=== PATIENT | female | born 1975 | race African-American/Black ===

== ENCOUNTER 2018-10-26 04:55 | Day surgery (SDC) | payer OTHER ==
[2018-10-22 10:40] VITALS: BMI 29.7
--- NOTE | 2018-10-26 07:18 | HP ---
History & Physical Update - History History: No Change - Physical Physical: No Change - Assessment Assessment: No Change - Plan Plan: No Change (Consent signed and witnessed, all questions answered)
[2018-10-26] MEDS ORDERED: MIDAZOLAM HCL 2 MG/2 ML SINGLE DOSE VIAL ONE (07:28)
[2018-10-26] MEDS ORDERED: PROPOFOL 20 ML ONE (07:28)
[2018-10-26] MEDS ORDERED: DEXAMETHASONE SOD PHOSPHATE 4 MG/1 ML VIAL ONE (07:58)
[2018-10-26] MEDS ORDERED: ePHEDrine SULFATE 50 MG/1 ML AMPULE ONE (08:26)
[2018-10-26] MEDS ORDERED: oxyCODONE HCL 5 MG TABLET PO PRN ×2 (08:51→09:16)
[2018-10-26] MEDS ORDERED: ONDANSETRON 4 MG/2 ML VIAL IVPUSH PRN ×2 (08:51→09:16)
[2018-10-26] MEDS ORDERED: LACTATED RINGERS SOLUTION 1,000 ML IV SCH (09:00)
[2018-10-26] MEDS ORDERED: IBUPROFEN 800 MG/8 ML IJ IVPB PRN (09:16)
[2018-10-26] MEDS ORDERED: IBUPROFEN 600 MG TABLET (FP) PO PRN (09:16)
--- NOTE | 2018-10-26 09:27 | OP ---
Operative Note - Note: Operative Date: 10/26/18 Pre-Operative Diagnosis: 43yo P2 with thick - 17mm Endometrium, anemia Operation: Hysteroscopy, Myomectomy, Polypectomy, D&C Findings: 1. Fibroid with submucasal component 2. Endometrial polyps 3. Overgrown Endometrium Post-Operative Diagnosis: Same as Pre-op Surgeon: Corinna Friend Anesthesiologist/DIRECTOR OF DIVERSITY AND INCLUSION: Raimundo Nieves Anesthesia: MAC Estimated Blood Loss (mls): 10 Drains & Tubes with Location: Fluid defficit - 2150cc Drains, Volume Out (mls): 150 Fluid Volume Replaced (mls): 500 Operative Report Dictated: Yes
[2018-10-26] MEDS ORDERED: ELECTROLYTE-148 SOLN 1,000 ML IV SCH (09:30)
[2018-10-26 09:32] LABS: BASO % 0.9 % (0-2.0); EOS % 1.4 % (0-4.5); HEMOGLOBIN 9.3 GM/dL (10.7-15.3); LYMPH % 50.6 % (8-40); MCH 24.9 pg (25.7-33.7); MCHC 33.3 g/dl (32.0-36.0); MEAN CELL VOLUME 74.6 fl (80-96); MONO % 8.8 % (3.8-10.2); NEUT % 38.3 % (42.8-82.8); PLATELET COUNT 300 K/MM3 (134-434); RBC 3.75 M/mm3 (3.60-5.2); RDW 19.5 % (11.6-15.6); WHITE BLOOD COUNT 2.8 K/mm3 (4.0-10.0)
[2018-10-26 09:59] LABS: ANION GAP 7 MMOL/L (8-16); BLOOD UREA NITROGEN 15 mg/dL (7-18); CALCIUM 7.6 mg/dL (8.5-10.1); CHLORIDE 111 mmol/L (98-107); CO2 21 mmol/L (21-32); CREATININE 0.9 mg/dL (0.55-1.3); GLUCOSE,RANDOM 99 mg/dL (74-106); POTASSIUM 4.4 mmol/L (3.5-5.1); SODIUM 139 mmol/L (136-145)
[2018-10-26 11:16] VITALS: TEMP 97.3
[2018-10-26] MEDS ORDERED: ONDANSETRON 4 MG/2 ML VIAL IVPUSH ONE (11:21)
[2018-10-26] MEDS ORDERED: ONDANSETRON 4 MG/2 ML VIAL ONE (11:25)
[2018-10-26 12:31] VITALS: BP 112/52; PULSE 65
--- NOTE | 2018-10-27 18:09 | PATH ---
Surgical Pathology Report Patient Name: MARI LEARY [facility]. Rec. #: [id number] /Age/Gender: 1975 (Age: 43) / F Account: [id number] [facility] [facility] [place] [facility] Taken: 10/26/2018 Received: 10/26/2018 Reported: 10/27/2018 Physicians: Corinna Friend M.D. Specimen(s) Received MYOMA, ENDOMETRIAL POLYP, ENDOMETRIAL CURETTINGS Clinical History Excessive and frequent irregular menstruation Final Diagnosis MYOMA, ENDOMETRIAL POLYP, ENDOMETRIAL CURETTINGS: SMOOTH MUSCLE BUNDLES, CONSISTENT WITH LEIOMYOMA. ENDOMETRIAL POLYPS. SEPARATE SECRETORY TYPE ENDOMETRIUM. Electronically Signed Tamia Suazo M.D. Gross Description Received in formalin labeled "myoma, endometrial polyp, [facility] is a 5.0 x 3.0 x 0.5 cm aggregate of coulter red soft tissue fragments admixed with blood clot, consistent with endometrial curettings. Separately received within the same container, within a suction bag, is a 5.0 x 3.8 x 0.6 cm aggregate of coulter, firm to rubbery tissue fragments. A retention representative portion is submitted in 6 cassettes as follows: 2-1-[id number] submitted curettings; 7-9-[id number] tissue from suction bag. 10/26/2018 [facility]
--- NOTE | 2018-12-21 08:42 | OP ---
DATE OF OPERATION: 10/26/2018 PREOPERATIVE DIAGNOSIS: A 43-year-old para 2 with thick endometrium, 17-mm endometrial stripe on ultrasound, and anemia. PROCEDURE PERFORMED: Hysteroscopy, myomectomy, polypectomy, dilatation and curettage. FINDINGS: Fibroid with submucosal component, endometrial polyps and overgrowing endometrium. POSTOPERATIVE DIAGNOSIS: A 43-year-old para 2 with thick endometrium, 17-mm endometrial stripe on ultrasound, and anemia. SURGEON: Corinna Friend MD ANESTHESIOLOGIST: Raimundo Nieves CRNA ANESTHESIA: MAC. DESCRIPTION OF PROCEDURE: After ensuring informed consent, the patient was brought to the operating room, where she was placed in the dorsal lithotomy position. The vagina and perineum were prepped and draped in sterile fashion. A Guardado retractor was placed into the vagina. The cervix was articulated with a single-tooth tenaculum and gradually dilated to accommodate a Symphion hysteroscope. The Symphion hysteroscope was primed and white balanced. It was placed through the cervix into the uterus without any difficulty, with the above-described findings. The resectoscope instrument was placed through the operative port and myomectomy, polypectomy and dilatation and curettage were accomplished via the resectoscope. Excellent hemostasis was assured. All instruments were removed from the uterus, cervix and vagina. The patient received 500 mL of IV fluids, and drained 150 mL of urine. Estimated blood loss was 10 mL. Fluid deficit was 2150 mL. The patient tolerated the procedure well. Instrument and sponge count was correct x2. Marcelino [id number]
== END 2018-10-26 12:45 | disposition home or self-care (01) ==
LOC: JASU-SURG 04:55
PROVIDERS: ATTEND Obstetrics & Gynecology
PROC: 0UB97ZX Excision of Uterus, Via Natural or Artificial Opening, Diagnostic (ICD-10-PCS; 2018-10-26)
PROC: 0UDB7ZX Extraction of Endometrium, Via Natural or Artificial Opening, Diagnostic (ICD-10-PCS; 2018-10-26)
PROC: 0UJD8ZZ Inspection of Uterus and Cervix, Via Natural or Artificial Opening Endoscopic (ICD-10-PCS; 2018-10-26)
PROC: 0UB98ZZ Excision of Uterus, Via Natural or Artificial Opening Endoscopic (ICD-10-PCS; principal; 2018-10-26 07:30)
DX: D25.9 Leiomyoma of uterus, unspecified (principal); N84.0 Polyp of corpus uteri
CPT/HCPCS: 36415; 80048; 84703; 85025; 88305-TC; 94760

== ENCOUNTER 2020-02-01 12:31 | Inpatient (IN) | payer OTHER ==
--- NOTE | 2020-02-01 14:15 | EKG ---
Test Reason : Blood Pressure : / mmHG Vent. Rate : 067 BPM Atrial Rate : 067 BPM P-R Int : 140 ms QRS Dur : 074 ms QT Int : 402 ms P-R-T Axes : 054 019 016 degrees QTc Int : 424 ms NORMAL SINUS RHYTHM NORMAL ECG WHEN COMPARED WITH ECG OF 18-OCT-2018 14:10, NO SIGNIFICANT CHANGE WAS FOUND Confirmed by MD MAGDY, SAVANNA ([id number]) on 02/01/2020 2:15:16 PM Referred By: Quinn MIR Confirmed By:SAVANNA CURRAN MD
[2020-02-01] MEDS ORDERED: SODIUM CHLORIDE 0.9% P/F 10 ML VIAL IJ ONE (14:45)
[2020-02-01] MEDS ORDERED: MIDAZOLAM HCL 2 MG/2 ML SINGLE DOSE VIAL ONE ×2 (14:45)
[2020-02-01] MEDS ORDERED: ceFAZolin SODIUM 1 GM VIAL ONE (14:45)
[2020-02-01] MEDS ORDERED: PROPOFOL 20 ML ONE ×2 (14:45)
[2020-02-01] MEDS ORDERED: DEXAMETHASONE SOD PHOSPHATE 4 MG/1 ML VIAL ONE (14:45)
[2020-02-01] MEDS ORDERED: KETOROLAC TROMETHAMINE 30 MG/1 ML VIAL ONE (16:18)
[2020-02-01] MEDS ORDERED: IBUPROFEN 600 MG TABLET (FP) PO PRN (16:36)
[2020-02-01] MEDS ORDERED: IBUPROFEN 800 MG/8 ML IJ IVPB PRN (16:36)
[2020-02-01] MEDS ORDERED: oxyCODONE HCL 5 MG TABLET PO PRN ×2 (16:36)
[2020-02-01] MEDS ORDERED: ONDANSETRON 4 MG/2 ML VIAL IVPUSH PRN ×2 (16:36)
[2020-02-01] MEDS ORDERED: ACETAMINOPHEN 1000 MG/100 ML VIAL (NON FORMULARY) IVPB ONE ×2 (16:37)
--- NOTE | 2020-02-01 16:40 | HP ---
History & Physical Update - History History: No Change - Physical Physical: No Change - Assessment Assessment: No Change - Plan Plan: No Change (Clearly explained that effectivness of this procedure is low due to large fibroid uterus. Reason for the procedure is temporise while she is on blood anticoagulats and does not have any other options currently. Consent signed and witnessed)
--- NOTE | 2020-02-01 16:44 | OP ---
Operative Note - Note: Operative Date: 02/01/20 Pre-Operative Diagnosis: 44yo with large fibroid uterus and abnormal uterine bleeding on anticoagulation for Pulmonary embolism Operation: D&C, Hysteroscopic endometrial ablation Findings: 1.Several submucosal fibroids 2.14wk Uterus 3. 10min cycle completed Post-Operative Diagnosis: Same as Pre-op Surgeon: Corinna Friend Anesthesiologist/CIRCULAR RIPSAW OPERATOR: Abdullahi Overton Anesthesia: MAC Specimens Removed: Endometrial curettings Estimated Blood Loss (mls): 0 Drains, Volume Out (mls): 0 Fluid Volume Replaced (mls): 550 Operative Report Dictated: Yes
[2020-02-01] MEDS ORDERED: ELECTROLYTE-148 SOLN 1,000 ML IV SCH (16:45)
[2020-02-01] MEDS ORDERED: ACETAMINOPHEN INJECTION 100 ML IVPB ONE (17:14)
[2020-02-01] MEDS ORDERED: ONDANSETRON 4 MG/2 ML VIAL ONE (19:49)
--- NOTE | 2020-02-01 21:19 | HP ---
CHIEF COMPLAINT: nausea, vomiting PCP: Dr. Ivory Braden HISTORY OF PRESENT ILLNESS: Patient is a 44 year old female with history of fibroid uterus, pulmonary embolism (provoked by oral contraceptive use, diagnosed this past November), iron deficiency anemia, presents POD #0 s/p D&C with hysterosopic endometrial ablation. Patient has been experiencing progressive bleeding prompting this procedure. Noted that she was also recently started on Apixiban for pulmonary embolism which patient admits has contributed to worsening bleeding. EBL 0cc, 550cc fluids volume relacement intraoperatively. Postoperatively, patient was noted to be nauseous with numerous episodes of bilious, non bloody vomiting. Patient was unable to tolerate a muffin. Case was discussed with Dr. Friend for admission given continued nausea, vomiting postoperatively. PARKING INSPECTOR: , one . Both children via vaginal delivery. LMP 01/28/20. Currently sexually active with male partner, does not use oral contraceptives, uses condoms. Recent Travel: Denies PAST MEDICAL HISTORY: fibroid uterus, pulmonary embolism, iron deficiency anemia PAST SURGICAL HISTORY: uterine polyp resection (December 2018) Social History: Lives in home with her son. Works with mentally disabled patients in [employer] Independent in activities of daily living. Smoking: Denies smoking history Alcohol: Denies smoking cigarettes Drugs: Denies illicit drug use Allergies No Known Allergies Allergy (Verified 02/01/20 13:26) HOME MEDICATIONS: Home Medications Medication Instructions Recorded Apixaban [Eliquis -] 5 mg PO BID 01/30/20 REVIEW OF SYSTEMS CONSTITUTIONAL: Absent: fever, chills, diaphoresis, generalized weakness, malaise, loss of appetite, weight change HEENT: Absent: rhinorrhea, nasal congestion, throat pain, throat swelling, difficulty swallowing, mouth swelling, ear pain, eye pain, visual changes CARDIOVASCULAR: Absent: chest pain, syncope, palpitations, irregular heart rate, lightheadedness, peripheral edema RESPIRATORY: Absent: cough, shortness of breath, dyspnea with exertion, orthopnea, wheezing, stridor, hemoptysis GASTROINTESTINAL: Admits: nausea, vomiting, pelvic pain (at postoperative region). Absent: abdominal distension, diarrhea, constipation, melena, hematochezia GENITOURINARY: Admits: slight vaginal bleeding (postoperatively). Absent: dysuria, frequency, urgency, hesitancy, hematuria, flank pain, genital pain MUSCULOSKELETAL: Absent: myalgia, arthralgia, joint swelling, back pain, neck pain SKIN: Absent: rash, itching, pallor HEMATOLOGIC/IMMUNOLOGIC: Absent: easy bleeding, easy bruising, lymphadenopathy, frequent infections ENDOCRINE: Absent: unexplained weight gain, unexplained weight loss, heat intolerance, cold intolerance NEUROLOGIC: Absent: headache, focal weakness or paresthesias, dizziness, unsteady gait, seizure, mental status changes, bladder or bowel incontinence PSYCHIATRIC: Absent: anxiety, depression, suicidal or homicidal ideation, hallucinations. PHYSICAL EXAMINATION Vital Signs - 24 hr 02/01/20 02/01/20 02/01/20 13:16 13:19 13:20 Temperature 97.6 F 97.6 F Pulse Rate 84 84 Respiratory 20 20 Rate Blood Pressure 125/54 L 125/54 L O2 Sat by Pulse 100 Oximetry (%) 02/01/20 02/01/20 02/01/20 16:30 16:45 17:00 Temperature 97.9 F Pulse Rate 88 78 71 Respiratory 14 12 10 Rate Blood Pressure 136/67 132/71 122/66 O2 Sat by Pulse 97 97 100 Oximetry (%) 02/01/20 02/01/20 02/01/20 17:15 17:30 17:45 Temperature Pulse Rate 69 67 68 Respiratory 9 L 11 10 Rate Blood Pressure 133/64 127/75 127/59 L O2 Sat by Pulse 100 100 100 Oximetry (%) 02/01/20 02/01/20 02/01/20 18:00 18:15 18:30 Temperature Pulse Rate 65 68 76 Respiratory 10 11 14 Rate Blood Pressure 125/70 131/67 120/81 O2 Sat by Pulse 100 99 97 Oximetry (%) 02/01/20 02/01/20 18:34 18:45 Temperature 98 F 97.7 F Pulse Rate 66 66 Respiratory 12 16 Rate Blood Pressure 126/69 101/65 O2 Sat by Pulse 96 97 Oximetry (%) GENERAL: The patient is awake, alert, and fully oriented, in no acute distress. HEAD: Normocephalic, atraumatic. EYES: PERRL, extraocular movements intact, sclera anicteric, conjunctiva clear. ENT: Oropharynx clear, without erythema or exudates. Moist mucous membranes. NECK: Trachea midline, full range of motion. Supple without lymphadenopathy. LUNGS: Breath sounds equal, clear to auscultation bilaterally. No wheezes, no crackles. No accessory muscle use. HEART: Regular rate and rhythm. S1, S2 without murmur, rub or gallop. ABDOMEN: Soft, nondistended, tender to palpation at lower quadrants/ suprapubic region. No rebound tenderness, no guarding. Normoactive bowel sounds x4 quadrants. No hepatosplenomegaly, no masses appreciated. EXTREMITIES: 2+ radial, dorsalis pedis pulses bilaterally. Warm, well-perfused. No lower extremity edema bilaterally. NEUROLOGICAL: Cranial nerves II through XII grossly intact. Normal speech. No gross focal deficits. PSYCH: Normal mood, normal affect upon my encounter. SKIN: Warm, dry. Negative rashes or lesions noted. ASSESSMENT/PLAN: Patient is a 44 year old female with history of fibroid uterus, pulmonary embolism (provoked by oral contraceptive use, diagnosed approx one month ago), iron deficiency anemia, presents POD #0 s/p D & C with hysterosopic endometrial ablation. Admitted for continued nausea, vomiting postoperatively. Nausea, vomiting s/p hysterosopic endometrial ablation -Improving. Likely secondary to intra-operative anesthetic effect. Patient tolerating slice of white bread, with sips of water. Will advance to full liquid diet, and continue to advance as tolerated. -Will obtain STAT labs to evaluate for metabolic etiology of nausea; WBC count 10.3, mildly elevated likely reactive postoperatively. Patient is afebrile. -Ibuprofen 800mg IV Q6H PRN for pain control 1-5, Oxycodone 5mg PO Q4H PRN for pain 6-10 -Zofran 4mg IV Q6 hours PRN for nausea (EKG reviewed, Qtc 426) -IV NS at 75mL/ hour; can discontinue once patient fully tolerating diet. -Patient will require outpatient follow up with OBGYN upon discharge. History of pulmonary embolism -Continue Eliquis 5mg PO BID, starting tomorrow morning; discussed with Dr. Friend. History of iron deficiency anemia -Hb/Hct .1 /31.1 appears stable; (patient states she had recent blood draw with Hb of 10.3). -Continue outpatient Iron infusions, hematology follow up. Hypomagnesemia -Repleted with Magnesium Sulfate 1 gram IV. FEN -IV NS at 75mL/ hour -Follow BMP -Full liquid diet; advance as tolerated. Prophylaxis -SCDs bilateral lower extremities; reinstate Eliquis 5mg PO BID 02/02/20 Disposition -Admit to medical surgical floor. Anticipate DC within 24 hours once patient tolerating diet. Visit type - Emergency Visit Emergency Visit: No - New Patient This patient is new to me today: Yes Date on this admission: 02/02/20 - Critical Care Critical Care patient: No ATTENDING PHYSICIAN STATEMENT I saw and evaluated the patient. I reviewed the resident's note and discussed the case with the resident. I agree with the resident's findings and plan as documented. SUBJECTIVE: OBJECTIVE: ASSESSMENT AND PLAN:
[2020-02-01] MEDS ORDERED: SODIUM CHLORIDE 1,000 ML IV SCH (21:30)
[2020-02-02] MEDS ORDERED: ACETAMINOPHEN 1000 MG/100 ML VIAL (NON FORMULARY) IVPB PRN (00:03)
[2020-02-02 00:38] LABS: HEMATOCRIT 31.1 % (32.4-45.2); HEMOGLOBIN 10.1 GM/dL (10.7-15.3); MCH 25.4 pg (25.7-33.7); MCHC 32.6 g/dl (32.0-36.0); MEAN CELL VOLUME 77.9 fl (80-96); MEAN PLT VOLUME 6.8 fl (7.5-11.1); PLATELET COUNT 477 K/MM3 (134-434); RBC 3.99 M/mm3 (3.60-5.2); WHITE BLOOD COUNT 10.3 K/mm3 (4.0-10.0)
[2020-02-02 01:02] LABS: ALBUMIN 3.1 g/dl (3.4-5.0); BILIRUBIN,TOTAL 0.7 mg/dL (0.2-1); CALCIUM 8.5 mg/dL (8.5-10.1); MAGNESIUM 1.5 mg/dL (1.8-2.4); PHOSPHOROUS 2.6 mg/dL (2.5-4.9); POTASSIUM 4.1 mmol/L (3.5-5.1); TOT PROT 7.2 g/dl (6.4-8.2)
[2020-02-02] MEDS ORDERED: MAGNESIUM SULF 50% (8.12 MEQ/2 ML-1 GM VIAL) IVPB ONE (01:31)
--- NOTE | 2020-02-02 02:16 | PN ---
Teaching Attending Note Name of Resident: Ayo Adler ATTENDING PHYSICIAN STATEMENT I saw and evaluated the patient. I reviewed the resident's note and discussed the case with the resident. I agree with the resident's findings and plan as documented. SUBJECTIVE: 44-year-old woman with a history of fibroids in the uterus, pulmonary embolism which was provoked by contraceptive use, diagnosed this past November, iron deficiency anemia, postop day #0 status post hysteroscopic endometrial ablation on 02/01/2020. Reported excessive bleeding per vaginally prior to this and was attributing her apixaban to possibly worsening of bleeding. Patient has not taken her apixaban since this past Thursday. She was to be admitted postop for persistent nausea. OBJECTIVE: Last Vital Signs Temp Pulse Resp BP Pulse Ox 97.7 F 66 16 101/65 97 02/01/20 18:45 02/01/20 18:45 02/01/20 18:45 02/01/20 18:45 02/01/20 18:45 On physical exam patient was not in any distress, appeared comfortable. Chest was clear to auscultation bilaterally, heart sounds are S1, S2. Abdomen was soft, nontender. Bowel sounds are present. Abnormal Lab Results 02/02/20 02/02/20 00:20 00:20 WBC 10.3 H Hgb 10.1 L Hct 31.1 L MCV 77.9 L MCH 25.4 L RDW 18.0 H Plt Count 477 H D MPV 6.8 L Chloride 108 H Random Glucose 177 H Magnesium 1.5 L Albumin 3.1 L ASSESSMENT AND PLAN: 44-year-old woman postop endometrial ablation, POD #0. To monitor for nausea. At this time nausea has improved and patient reports that her pain is controlled. Admitted to [facility] Pain control with Percocet as needed Zofran PRN if nausea or vomiting IV fluid hydration Supplement magnesium [employer] follow-up #Anemiamicrocytic, suspect secondary to iron deficiency Ferrous sulfate supplementation with vitamin C Monitor CBC #History of PE Would resume apixaban in the morning if bleeding is not present. DVT prophylaxisSCDs
[2020-02-02 03:45] VITALS: BMI 31.1
[2020-02-02 08:10] LABS: HEMATOCRIT 28.9 % (32.4-45.2); HEMOGLOBIN 9.3 GM/dL (10.7-15.3); MCH 25.1 pg (25.7-33.7); MCHC 32.1 g/dl (32.0-36.0); MEAN CELL VOLUME 78.3 fl (80-96); MEAN PLT VOLUME 7.1 fl (7.5-11.1); PLATELET COUNT 449 K/MM3 (134-434); RBC 3.69 M/mm3 (3.60-5.2); RDW 17.9 % (11.6-15.6); WHITE BLOOD COUNT 13.1 K/mm3 (4.0-10.0)
[2020-02-02 08:41] LABS: ALBUMIN 2.8 g/dl (3.4-5.0); BILIRUBIN,TOTAL 0.5 mg/dL (0.2-1); BLOOD UREA NITROGEN 8.8 mg/dL (7-18); CALCIUM 8.4 mg/dL (8.5-10.1); CREATININE 0.8 mg/dL (0.55-1.3); MAGNESIUM 2.2 mg/dL (1.8-2.4); PHOSPHOROUS 1.9 mg/dL (2.5-4.9); POTASSIUM 4.2 mmol/L (3.5-5.1); TOT PROT 6.3 g/dl (6.4-8.2)
[2020-02-02] MEDS ORDERED: APIXABAN 5 MG TABLET PO SCH (10:00)
--- NOTE | 2020-02-02 10:28 | PN ---
Physical Exam: SUBJECTIVE: Patient seen and examined no acute events , feeling better , OBJECTIVE: Vital Signs Period Temp Pulse Resp BP Sys/Masters Pulse Ox Last 24 Hr 97.6 F-98 F 65-92 9-20 98-136/50-81 96-100 GENERAL: AAOx3 in NAD HEAD: NC/AT EYES: EOMI, Conjunctiva clear, sclera anicteric ENT: moist mucous membrane NECK: Supple, no JVD LUNGS: CTA B/L, no crackles no wheezing no accessory muscle use. HEART: RRR, NSR, normal s1, s2, murmur no M/R/G ABDOMEN: Soft, ND, NT, +BS 4 Q, no CVA Tenderness LOWER EXTREMITIES: no edema, +2DP pulse, NEUROLOGICAL: No focal deficit. Normal speech. gait not observed. PSYCHIATRIC: Cooperative. Good eye contact. Appropriate mood and affect. SKIN: Warm, dry, Laboratory Results - last 24 hr 02/02/20 02/02/20 02/02/20 00:20 00:20 07:03 WBC 10.3 H 13.1 H RBC 3.99 3.69 Hgb 10.1 L 9.3 L Hct 31.1 L 28.9 L MCV 77.9 L 78.3 L MCH 25.4 L 25.1 L MCHC 32.6 32.1 RDW 18.0 H 17.9 H Plt Count 477 H D 449 H MPV 6.8 L 7.1 L Sodium 138 Potassium 4.1 Chloride 108 H Carbon Dioxide 22 Anion Gap 9 BUN 10.0 Creatinine 1.0 Est GFR (CKD-EPI)AfAm 78.24 Est GFR (CKD-EPI)NonAf 67.51 Random Glucose 177 H Calcium 8.5 Phosphorus 2.6 Magnesium 1.5 L Total Bilirubin 0.7 AST 21 ALT 15 Alkaline Phosphatase 114 Total Protein 7.2 Albumin 3.1 L 02/02/20 07:03 WBC RBC Hgb Hct MCV MCH MCHC RDW Plt Count MPV Sodium 139 Potassium 4.2 Chloride 110 H Carbon Dioxide 23 Anion Gap 6 L BUN 8.8 Creatinine 0.8 Est GFR (CKD-EPI)AfAm 102.47 Est GFR (CKD-EPI)NonAf 88.41 Random Glucose 89 Calcium 8.4 L Phosphorus 1.9 L Magnesium 2.2 Total Bilirubin 0.5 AST 18 ALT 11 L Alkaline Phosphatase 96 Total Protein 6.3 L Albumin 2.8 L Active Medications Generic Name Dose Route Start Last Admin Trade Name Freq PRN Reason Stop Dose Admin Apixaban 5 mg 02/02/20 10:00 02/02/20 09:45 Eliquis - PO 5 mg BID HÉCTOR Administration Sodium Chloride 1,000 mls @ 75 mls/hr 02/01/20 21:30 02/01/20 22:13 Normal Saline - IV 75 mls/hr ASDIR HÉCTOR Administration Ibuprofen 600 mg 02/01/20 16:36 Motrin - PO Q6H PRN FEVER Ibuprofen 800 mg 02/01/20 16:36 02/01/20 22:13 Caldolor Injection - IVPB 800 mg Q6H PRN Administration PAIN LEVEL 1-5 Ondansetron HCl 4 mg 02/01/20 16:36 Zofran Injection IVPUSH Q6H PRN NAUSEA Oxycodone HCl 5 mg 02/01/20 16:36 Roxicodone - PO Q4H PRN PAIN LEVEL 6-10 CBC, BMP 02/02/20 07:03 02/02/20 07:03 ASSESSMENT/PLAN: Patient is a 44 year old female with history of fibroid uterus, pulmonary embolism (provoked by oral contraceptive use, diagnosed approx one month ago), iron deficiency anemia, presents POD #1 s/p D & C with hysterosopic endometrial ablation. Admitted for continued nausea, vomiting postoperatively. #Nausea, vomiting s/p hysterosopic endometrial ablation * Improving. Likely secondary to intra-operative anesthetic effect. Patient tolerating slice of white bread, with sips of water. Will advance to full liquid diet, and continue to advance as tolerated. * wbc trensing up , H/H 9.3/28.9, Plt 449 * Ibuprofen 800mg IV Q6H PRN for pain control 1-5, Oxycodone 5mg PO Q4H PRN for pain 6-10 * Zofran 4mg IV Q6 hours PRN for nausea (EKG reviewed, Qtc 426) * IV NS at 75mL/ hour; * Patient will require outpatient follow up with OBGYN upon discharge. #History of pulmonary embolism * Continue Eliquis 5mg PO BID, starting tomorrow morning; discussed with Dr. Friend. #History of iron deficiency anemia * monitor H/H appears stable; * Continue outpatient Iron infusions, hematology follow up. * normal transfusion threshold #Hypomagnesemia, Repleted #FEN * IV NS at 75mL/ hour * Follow BMP * Full liquid diet; advance as tolerated. #Prophylaxis * SCDs bilateral lower extremities; reinstate Eliquis 5mg PO BID 02/02/20 Disposition Admit to medical surgical floor. Anticipate DC within 24 hours once patient tolerating diet. ATTENDING PHYSICIAN STATEMENT I saw and evaluated the patient. I reviewed the resident's note and discussed the case with the resident. I agree with the resident's findings and plan as documented. SUBJECTIVE: OBJECTIVE: ASSESSMENT AND PLAN:
[2020-02-02] MEDS ORDERED: SODIUM CHLORIDE 1,000 ML IV SCH (10:36)
[2020-02-02] MEDS ORDERED: NAPH,MB-DB/K PH,MBDB POWDER PACKET PO ONE (10:45)
--- NOTE | 2020-02-02 11:43 | OP ---
DATE OF OPERATION: 02/01/2020 PREOPERATIVE DIAGNOSES: A 44-year-old with large fibroid uterus and abnormal uterine bleeding on anticoagulation for pulmonary embolism. OPERATION: Dilatation and curettage, hysteroscopic endometrial ablation. FINDINGS: Several submucosal fibroids, 14-cm uterus. Ten-minute cycle of endometrial ablation completed. POSTOPERATIVE DIAGNOSES: A 44-year-old with large fibroid uterus and abnormal uterine bleeding on anticoagulation for pulmonary embolism. SURGEON: Maureen Delgado MD ANESTHESIOLOGIST: Wily Overton MD ANESTHESIA: MAC. SPECIMENS SENT TO PATHOLOGY: Endometrial curettings. DESCRIPTION OF OPERATIVE PROCEDURE: After assuring informed consent, patient was brought to the operating room where she was placed in dorsal lithotomy position. Vagina and perineum were prepped and draped in sterile fashion. Flagyl 1 g was administered intraoperatively. Guardado retractors were placed into the vagina. Cervix was visualized, and anterior cervical lip was articulated with single-tooth tenaculum. Cervix was gradually dilated to accommodate a hysteroscope. The serrated curette was used to gently curette uterus once in each quadrant to collect endometrial curettings which were sent for pathology. Subsequently, the hysteroscope was introduced, and intrauterine contents were visualized. The right ostia were visualized. The left ostia were blocked by a fibroid. Large endometrial cavity was noted. The endometrial cycle was initiated and completed. Cooling cycle completed. Subsequently, the instrument was removed from the uterus. Vagina was noted to be intact without any injuries. All instruments were removed from uterus, cervix, and vagina. Excellent hemostasis was noted. Estimated blood loss 0 mL. Patient drained 0 mL of urine, received 550 mL of IV fluids. Sponge and instrument count was correct x2. She was brought stable to the recovery room. MAUREEN DELGADO M.D. [id number]
[2020-02-02 12:24] VITALS: BP 117/60; PULSE 86; TEMP 97.8
--- NOTE | 2020-02-02 14:13 | DS ---
Physical Exam: SUBJECTIVE: Patient seen and examined at bed side , monitored over night for N/V which is resolved pt s table to dc home with close follow up with her pcp and OBgyn , resume home medication as before admssion POD# Endometrial ablation. OBJECTIVE: Vital Signs Period Temp Pulse Resp BP Sys/Masters Pulse Ox Last 24 Hr 97.6 F-98 F 65-92 9-20 98-136/50-81 96-100 PHYSICAL EXAM GENERAL: The patient is awake, alert, and fully oriented, in no acute distress. HEAD: Normal with no signs of trauma. EYES: PERRL, extraocular movements intact, sclera anicteric, conjunctiva clear. ENT: Ears normal, nares patent, oropharynx clear without exudates, moist mucous membranes. NECK: Trachea midline, full range of motion, supple. LUNGS: Breath sounds equal, clear to auscultation bilaterally, no wheezes, no crackles, no accessory muscle use. HEART: Regular rate and rhythm, S1, S2 without murmur, rub or gallop. ABDOMEN: Soft, nontender, nondistended, normoactive bowel sounds, EXTREMITIES: 2+ pulses, warm, well-perfused, no edema. NEUROLOGICAL:no focal deficit . Normal speech, gait not observed. PSYCH: Normal mood, normal affect. SKIN: Warm, dry, normal turgor, no rashes or lesions noted. LABS Laboratory Results - last 24 hr 02/02/20 02/02/20 02/02/20 00:20 00:20 07:03 WBC 10.3 H 13.1 H RBC 3.99 3.69 Hgb 10.1 L 9.3 L Hct 31.1 L 28.9 L MCV 77.9 L 78.3 L MCH 25.4 L 25.1 L MCHC 32.6 32.1 RDW 18.0 H 17.9 H Plt Count 477 H D 449 H MPV 6.8 L 7.1 L Sodium 138 Potassium 4.1 Chloride 108 H Carbon Dioxide 22 Anion Gap 9 BUN 10.0 Creatinine 1.0 Est GFR (CKD-EPI)AfAm 78.24 Est GFR (CKD-EPI)NonAf 67.51 Random Glucose 177 H Calcium 8.5 Phosphorus 2.6 Magnesium 1.5 L Total Bilirubin 0.7 AST 21 ALT 15 Alkaline Phosphatase 114 Total Protein 7.2 Albumin 3.1 L 02/02/20 07:03 WBC RBC Hgb Hct MCV MCH MCHC RDW Plt Count MPV Sodium 139 Potassium 4.2 Chloride 110 H Carbon Dioxide 23 Anion Gap 6 L BUN 8.8 Creatinine 0.8 Est GFR (CKD-EPI)AfAm 102.47 Est GFR (CKD-EPI)NonAf 88.41 Random Glucose 89 Calcium 8.4 L Phosphorus 1.9 L Magnesium 2.2 Total Bilirubin 0.5 AST 18 ALT 11 L Alkaline Phosphatase 96 Total Protein 6.3 L Albumin 2.8 L CBC, BMP 02/02/20 07:03 02/02/20 07:03 HOSPITAL COURSE: Date of Admission:02/01/20 Date of Discharge: 02/02/20 44 year old female admitted for N/V S/P endometrial ablation , monitored over nigt and symptoms , resolved, 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 Minutes to complete discharge: 45 Discharge Summary Problems reviewed: Yes Reason For Visit: MENORRHAGIA, FIBROIDS Condition: Stable - Instructions Diet, Activity, Other Instructions: Dr. Corinna Friend Assisted Sales Representative discharge instructions Physical activity Resume your normal everyday activity as tolerated no heavy lifting or exercise until seen by your surgeon. You may walk unlimited mathew of and climb stairs. You may resume driving the car when you feel safe and comfortable behind the wheel. No sexual activity as instructed by Dr. Friend Diet There are no dietary restrictions. Eat healthy, high-fiber foods. Drink 6 to 8 glasses of liquid each day. This will assist in keeping your bowels are regular. Pain management You may take Tylenol or acetaminophen or Ibuprofen (for example, Motrin, Advil etc.) from my pain prescription medication is ordered should be taken as prescribed for moderate to severe pain. Call Dr. Friend for any of the following: Severe pain not relieved by medication Fever of 101 or higher Excessive bleeding or drainage on dressing Inability to urinate Call the office at [phone] for an appointment in seven days. Referrals: Corinna Friend MD [Staff Physician] - 1 Week Disposition: HOME - Home Medications Comprehensive Discharge Medication List: Ambulatory Orders Apixaban [Eliquis -] 5 mg PO BID 01/30/20 This patient is new to me today: Yes Date on this admission: 02/02/20 Emergency Visit: Yes ED Registration Date: 02/01/20 Care time: The patient presented to the Emergency Department on the above date and was hospitalized for further evaluation of their emergent condition. Critical Care patient: No - Discharge Referral Referred to [facility] No ATTENDING PHYSICIAN STATEMENT I saw and evaluated the patient. I reviewed the resident's note and discussed the case with the resident. I agree with the resident's findings and plan as documented. SUBJECTIVE: OBJECTIVE: ASSESSMENT AND PLAN:
--- NOTE | 2020-02-06 16:23 | PATH ---
Surgical Pathology Report Patient Name: MARI LEARY Med. Rec. #: [id number] /Age/Gender: 1975 (Age: 44) / F Account: [id number] Location: [facility] MED/SURG Taken: 02/01/2020 Received: 02/02/2020 Reported: 02/06/2020 Physicians: Corinna Friend M.D. Specimen(s) Received ENDOMETRIAL CURETTINGS Clinical History Abnormal uterine bleeding, fibroids Final Diagnosis ENDOMETRIAL CURETTINGS, DILATION AND CURETTAGE: FRAGMENTS OF PROLIFERATIVE ENDOMETRIUM, BENIGN CERVICAL TISSUE, AND SCANT FIBROMUSCULAR TISSUE SUGGESTIVE OF SUBMUCOSAL LEIOMYOMA, IN A BACKGROUND OF ABUNDANT MUCUS. Comment: Immunohistochemical stain performed at [place], [place] ([id number]) and interpreted at [facility] for CD138 utilized to evaluate this case. Positive and negative controls (internal if applicable) show appropriate results. Electronically Signed Nicole Branham M.D. Gross Description Received in formalin labeled "endometrial curettings," is a 2.8 x 2.3 x 0.3 cm aggregate of coulter soft tissue fragments admixed with blood-tinged mucous. The formalin is filtered and the specimen is entirely submitted in one cassette. 02/02/2020 [facility]02/02/2020
== END 2020-02-02 14:00 | disposition home or self-care (01) | DRG 983 ==
LOC: JASU-SURG 12:31 → J8W 21:34
PROVIDERS: ADMIT Obstetrics & Gynecology
PROC: 0U5B8ZZ Destruction of Endometrium, Via Natural or Artificial Opening Endoscopic (ICD-10-PCS; principal; 2020-02-01 14:30)
PROC: 0UDB8ZX Extraction of Endometrium, Via Natural or Artificial Opening Endoscopic, Diagnostic (ICD-10-PCS; 2020-02-01 14:30)
DX: R11.2 Nausea with vomiting, unspecified (principal); D25.0 Submucous leiomyoma of uterus; N93.9 Abnormal uterine and vaginal bleeding, unspecified; Z86.711 Personal history of pulmonary embolism; D50.9 Iron deficiency anemia, unspecified; E83.42 Hypomagnesemia; T88.59XA Other complications of anesthesia, initial encounter; Y83.8 Other surgical procedures as the cause of abnormal reaction of the patient, or of later complication, without mention of misadventure at the time of the procedure
CPT/HCPCS: 36415; 80053; 83735; 84100; 85027; 88305-TC; 93005; 93010; 94760; 97116-GP; 97161-GP; J0131; J7030

== ENCOUNTER 2020-12-11 10:24 | Inpatient (IN) | payer OTHER ==
[2020-12-06 16:12] VITALS: BMI 33.9
[2020-12-18] MEDS ORDERED: MIDAZOLAM HCL 2 MG/2 ML SINGLE DOSE VIAL ONE ×3 (10:29→10:43)
[2020-12-18] MEDS ORDERED: DEXAMETHASONE SOD PHOSPHATE 4 MG/1 ML VIAL ONE (10:29)
[2020-12-18] MEDS ORDERED: ROCURONIUM BROMIDE 50 MG/5 ML SYRINGE ONE (10:29)
[2020-12-18] MEDS ORDERED: LIDOCAINE HCL/PF 2% SDV 5ML VIAL ONE (10:29)
[2020-12-18] MEDS ORDERED: fentaNYL CITRATE 250 MCG/5 ML VIAL ONE (10:29)
[2020-12-18] MEDS ORDERED: PROPOFOL 20 ML ONE (10:29)
[2020-12-18] MEDS ORDERED: DEXAMETHASONE SOD PHOSPHATE/PF 10 MG/ML SDV ONE (10:44)
[2020-12-18] MEDS ORDERED: ceFAZolin SODIUM 1 GM VIAL ONE (11:38)
[2020-12-18] MEDS ORDERED: ceFAZolin SODIUM 1 GM VIAL IVPB ONE (11:38)
[2020-12-18] MEDS ORDERED: BACITRACIN 15 GM TUBE TOPICAL OINTMENT ONE (13:08)
[2020-12-18] MEDS ORDERED: ONDANSETRON 4 MG/2 ML VIAL IVPUSH PRN ×2 (13:08→13:34)
[2020-12-18] MEDS ORDERED: oxyCODONE HCL 5 MG TABLET PO PRN ×2 (13:09)
[2020-12-18] MEDS ORDERED: BACITRACIN 15 GM TUBE TOPICAL OINTMENT TP ONE (13:09)
[2020-12-18] MEDS ORDERED: GLYCOPYRROLATE 0.2 MG/1 ML VIAL ONE (13:10)
[2020-12-18] MEDS ORDERED: NEOSTIGMINE METHYLSULFATE 0.5 MG/ML - 10 ML MDV ONE (13:10)
[2020-12-18] MEDS ORDERED: LACTATED RINGERS SOLUTION 1,000 ML IV SCH (13:15)
[2020-12-18] MEDS ORDERED: IBUPROFEN 800 MG/8 ML IJ IVPB PRN (13:34)
[2020-12-18] MEDS ORDERED: ELECTROLYTE-148 SOLN 1,000 ML IV SCH (13:45)
[2020-12-18] MEDS ORDERED: HYDROmorphone HCl 2 MG/ML VIAL ONE (13:50)
[2020-12-18] MEDS ORDERED: HYDROmorphone HCl 2 MG/ML VIAL IVPUSH ONE (13:53)
[2020-12-18] MEDS ORDERED: ACETAMINOPHEN INJECTION 100 ML IVPB ONE (13:58)
[2020-12-18] MEDS ORDERED: KETOROLAC TROMETHAMINE 30 MG/1 ML VIAL ONE (13:58)
[2020-12-18] MEDS ORDERED: HYDROmorphone *PCA* 10MG/50ML DISP.SYRIN PCA SCH (14:00)
[2020-12-18] MEDS ORDERED: HYDROmorphone *PCA* 10MG/50ML DISP.SYRIN ONE (14:18)
[2020-12-18] MEDS ORDERED: KETOROLAC TROMETHAMINE 30 MG/1 ML VIAL IVPUSH ONE (15:54)
[2020-12-18] MEDS ORDERED: ACETAMINOPHEN 1000 MG/100 ML VIAL (NON FORMULARY) IVPB ONE (15:54)
[2020-12-18] MEDS: ACETAMINOPHEN 325 MG TABLET (FP) PO SCH ×2 (17:19→22:11)
[2020-12-18] MEDS: CEFAZOLIN 2 GM/D5W 2 GM/50 ML ML IVPB SCH (18:11)
[2020-12-18] MEDS ORDERED: oxyCODONE HCL 10 MG SUSTAINED ACTING TABLET PO SCH (22:00)
[2020-12-18] MEDS: ENOXAPARIN NA (PORCINE) 40 MG/0.4 ML DISP.SYRIN SQ SCH (22:21)
[2020-12-19] MEDS: ACETAMINOPHEN 325 MG TABLET (FP) PO SCH ×4 (01:26→21:28)
[2020-12-19] MEDS: CEFAZOLIN 2 GM/D5W 2 GM/50 ML ML IVPB SCH (01:31)
[2020-12-19] MEDS ORDERED: PCA PUMP KEY 1 EACH EACH ONE (08:40)
[2020-12-19] MEDS: ENOXAPARIN NA (PORCINE) 40 MG/0.4 ML DISP.SYRIN SQ SCH ×2 (10:17→21:28)
[2020-12-19] MEDS: IBUPROFEN 600 MG TABLET (FP) PO PRN ×2 (11:11→16:32)
[2020-12-19 14:04] LABS: HEMATOCRIT 29.5 % (32.4-45.2); HEMOGLOBIN 9.5 GM/dL (10.7-15.3); MCH 24.9 pg (25.7-33.7); MCHC 32.4 g/dl (32.0-36.0); MEAN CELL VOLUME 76.9 fl (80-96); MEAN PLT VOLUME 7.3 fl (7.5-11.1); PLATELET COUNT 468 K/MM3 (134-434); RBC 3.84 M/mm3 (3.60-5.2); RDW 15.7 % (11.6-15.6); WHITE BLOOD COUNT 14.7 K/mm3 (4.0-10.0)
[2020-12-19 22:02] VITALS: TEMP 97.7
[2020-12-20] MEDS: ACETAMINOPHEN 325 MG TABLET (FP) PO SCH ×3 (03:00→14:06)
[2020-12-20] MEDS ORDERED: BISACODYL 10 MG SUPP.RECT PR ONE (09:00)
[2020-12-20] MEDS: ENOXAPARIN NA (PORCINE) 40 MG/0.4 ML DISP.SYRIN SQ SCH (10:04)
[2020-12-20 10:48] VITALS: BP 124/86; PULSE 89
== END 2020-12-20 14:15 | disposition home or self-care (01) | DRG 743 ==
LOC: J2C 12-18 04:18 → J3W 12-18 16:46
PROVIDERS: ADMIT Obstetrics & Gynecology; ATTEND Obstetrics & Gynecology
PROC: 0UT70ZZ Resection of Bilateral Fallopian Tubes, Open Approach (ICD-10-PCS; 2020-12-18)
PROC: 0UT90ZL Resection of Uterus, Supracervical, Open Approach (ICD-10-PCS; principal; 2020-12-18 10:30)
DX: D25.9 Leiomyoma of uterus, unspecified (principal); N92.1 Excessive and frequent menstruation with irregular cycle; R10.2 Pelvic and perineal pain
CPT/HCPCS: 36415; 84703; 85027; 86850; 86900; 86901; 86922; 88302-TC; 94760; J0131

== ENCOUNTER 2023-01-07 23:19 | Emergency (ER) | payer OTHER ==
[2023-01-08 00:13] VITALS: BP 125/76; PULSE 86; RESP 18; TEMP 98.7; BMI 34.1
== END 2023-01-08 00:24 | disposition home or self-care (01) ==
LOC: FER 23:19
DX: M54.12 Radiculopathy, cervical region (principal)
CPT/HCPCS: 72050-TC-FY; 72070-TC-FY; 99283-25